=== PATIENT | male | born 1990 | race Caucasian/White ===

== ENCOUNTER 2017-11-26 18:06 | Emergency (ER) | payer BC ==
--- NOTE | 2017-11-26 18:43 | EDM.PDOC ---
ED HPI GENERAL MEDICAL PROBLEM - General Chief Complaint: Skin Complaint Stated Complaint: LOST FINGERNAIL RT HAND Time Seen by Provider: 11/26/17 18:30 Source of Information: Reports: Patient History Limitations: Reports: No Limitations - History of Present Illness INITIAL COMMENTS - FREE TEXT/NARRATIVE: Tang was working with a machine at home when his R ring finger was inadvertantly grasped by the device, avulsing his fingernail. There is minor pain at the distal phalanx, but no other deformity. CMS intact. He did not retreive the nail for ED use. right forth finger Pain Score (Numeric/FACES): 3 - Related Data Allergies Allergy/AdvReac Type Severity Reaction Status Date / Time No Known Allergies Allergy Verified 11/26/17 18:21 Home Meds: Home Meds NK [No Known Home Meds] 11/26/17 [History] ED ROS GENERAL - Review of Systems Review Of Systems: ROS reveals no pertinent complaints other than HPI. ED EXAM, SKIN/RASH Exam: See Below Exam Limited By: No Limitations General Appearance: Alert, WD/WN, No Apparent Distress Head: Normocephalic Neck: Normal Inspection, Full Range of Motion Respiratory/Chest: Lungs Clear Cardiovascular: Regular Rate, Rhythm Back Exam: Normal Inspection Extremities: Normal Range of Motion, Other (avulsed R ring fingernail, minor defect of distal nail bed, no swelling of phalanx; FROM, CMS intact) Neurological: Alert, Oriented, CN II-XII Intact, Normal Cognition, Normal Gait, No Motor/Sensory Deficits Psychiatric: Normal Affect, Normal Mood Skin: Warm, Dry, Other (see annotation above) Course - Vital Signs Text/Narrative:: The R ring finger was cleaned, nail bed was dressed with triple antibx oint, vaseline gauze, and tube gauze. Last Recorded V/S: Last Vital Signs Temp 36.8 C 11/26/17 18:06 Pulse 60 11/26/17 18:06 Resp 17 11/26/17 18:06 BP 151/80 H 11/26/17 18:06 Pulse Ox 100 11/26/17 18:06 Departure - Departure Time of Disposition: 18:42 Disposition: Home, Self-Care 01 Condition: Good Clinical Impression: Avulsion of fingernail of right hand - Discharge Information Referrals: PCP,None [Primary Care Provider] - Forms: ED Department Discharge - Problem List & Annotations (1) Avulsion of fingernail of right hand SNOMED Code(s): 447719781 Code(s): S61.309A - UNSP OPEN WOUND OF UNSP FINGER W DAMAGE TO NAIL, INIT ENCNTR Status: Acute Annotation/Comment:: Local care, keep clean and covered - Problem List Review Problem List Initiated/Reviewed/Updated: Yes - Assessment/Plan Plan: Follow up with PCP if needed.
== END 2017-11-26 18:50 | disposition home or self-care (01) ==
LOC: FB.ED 18:06
DX: S61.304A Unspecified open wound of right ring finger with damage to nail, initial encounter (principal); W31.89XA Contact with other specified machinery, initial encounter; Y92.009 Unspecified place in unspecified non-institutional (private) residence as the place of occurrence of the external cause
CPT/HCPCS: 99283

== ENCOUNTER 2020-03-19 14:27 | Emergency (ER) | payer OTHER, BC ==
--- NOTE | 2020-03-19 14:58 | EDM.PDOC ---
ED HPI GENERAL MEDICAL PROBLEM - General Stated Complaint: CUT IN ARM Time Seen by Provider: 03/19/20 14:30 Source of Information: Reports: Patient History Limitations: Reports: No Limitations - History of Present Illness INITIAL COMMENTS - FREE TEXT/NARRATIVE: Patient presented to the ED because of a laceration on the left forearm . He was cutting a metal and the cutter went to his arm and he sustained a 4 cm laceration. Left Arm Pain Score (Numeric/FACES): 3 - Related Data Allergies Allergy/AdvReac Type Severity Reaction Status Date / Time No Known Allergies Allergy Verified 11/26/17 18:21 Home Meds: Home Meds cephALEXin [Keflex] 500 mg PO Q8H #30 cap 03/19/20 [Rx] Past Medical History - Past Health History Medical/Surgical History: Denies Medical/Surgical History Respiratory History: Reports: Asthma Social & Family History - Family History Family Medical History: Noncontributory - Caffeine Use Caffeine Use: Reports: None Review of Systems - Review of Systems Review Of Systems: See Below Constitutional: Reports: No Symptoms Eyes: Reports: No Symptoms Ears: Reports: No Symptoms Nose: Reports: No Symptoms Mouth/Throat: Reports: No Symptoms Respiratory: Reports: No Symptoms Cardiovascular: Reports: No Symptoms GI/Abdominal: Reports: No Symptoms Genitourinary: Reports: No Symptoms Musculoskeletal: Reports: No Symptoms Skin: Reports: Wound ED EXAM, GENERAL - Physical Exam Exam: See Below (4 cm laceration left forearm) Exam Limited By: No Limitations General Appearance: Alert, No Apparent Distress Ears: Normal External Exam, Normal Canal Nose: Normal Inspection, Normal Mucosa Throat/Mouth: Normal Inspection, Normal Lips Head: Atraumatic, Normocephalic Neck: Normal Inspection, Supple, Non-Tender, Full Range of Motion Respiratory/Chest: No Respiratory Distress, Lungs Clear, Normal Breath Sounds Cardiovascular: Normal Peripheral Pulses, Regular Rate, Rhythm, No Edema, No Gallop GI/Abdominal: Normal Bowel Sounds, Soft, Non-Tender, No Organomegaly Back Exam: Normal Inspection, Full Range of Motion Extremities: Normal Inspection, Normal Range of Motion Neurological: Alert, Oriented, CN II-XII Intact Skin Exam: Other ED TRAUMA EXTREMITY PROCEDURES - Laceration/Wound Repair Left Lower Arm Lac/Wound Length In cm: 4 Appearance: Linear Distal NVT: Neuro & Vascular Intact Anesthetic Type: Local Local Anesthesia - Lidocaine (Xylocaine): 1% Plain Local Anesthetic Volume: 2cc Skin Prep: Chlorhexidine (Hibiciens) Closed With: Sutures Suture Size: 3-0 Suture Type: Nylon # of Sutures: 5 Left Arm Appearance: Subcutaneous Distal NVT: Neuro & Vascular Intact Anesthetic Type: Local Local Anesthesia - Lidocaine (Xylocaine): 1% Plain Local Anesthetic Volume: 3cc Skin Prep: Chlorhexidine (Hibiciens) Exploration/Debridement/Repair: Wound Explored Closed With: Sutures Suture Size: 3-0 # of Sutures: 7 Suture Type: Nylon Course - Vital Signs Text/Narrative:: UTD with immunization Last Recorded V/S: Last Vital Signs Temp 36.2 C 03/19/20 14:30 Pulse 75 03/19/20 14:30 Resp 18 03/19/20 14:30 BP 159/63 H 03/19/20 14:30 Pulse Ox 97 03/19/20 14:30 Departure - Departure Time of Disposition: 15:15 Disposition: Home, Self-Care 01 Condition: Good Clinical Impression: Laceration - Discharge Information Prescriptions: cephALEXin [Keflex] 500 mg PO Q8H #30 cap Instructions: Laceration Care, Adult Referrals: PCP,None [Ordering Only Provider] - Forms: ED Department Discharge Additional Instructions: Please read discharge instructions on laceration and wound care No need to apply an antibiotic ointment because you are taking an oral antibiotic Do not cover your wound when you are inside the house Take keflex 500 mg 3 times daily for 10 days Removal of suture in the clinic in 10 days Sepsis Event Note (ED) - Focused Exam Vital Signs: Vital Signs Temp Pulse Resp BP Pulse Ox 03/19/20 14:30 36.2 C 75 18 159/63 H 97
== END 2020-03-19 15:05 | disposition home or self-care (01) ==
LOC: FB.ED 14:27
DX: S51.812A Laceration without foreign body of left forearm, initial encounter (principal); J45.909 Unspecified asthma, uncomplicated; W26.8XXA Contact with other sharp object(s), not elsewhere classified, initial encounter
CPT/HCPCS: 12002; 99282; J2001; 99283